=== PATIENT | male | born 1995 | race Two or more races ===

== ENCOUNTER 2022-07-31 17:55 | Emergency (ER) | payer OTHER ==
[~2022-07-31] VITALS: Ht 180.3 cm; Wt 102.6 kg
[2022-07-31 19:09] VITALS: BP 143/92
[2022-07-31] MEDS ORDERED: LIDOCAINE 1% HCL (LOCAL ANESTH.) INJ 20ML MDV IJ ONE (19:45)
[2022-07-31] MEDS ORDERED: CLIN-203 PO (20:13)
== END 2022-07-31 20:26 | disposition home or self-care (01) ==
LOC: ER 17:55
DX: L02.214 Cutaneous abscess of groin (principal)
CPT/HCPCS: 10060; 99283; J2001

== ENCOUNTER 2022-11-30 04:14 | Emergency (ER) | payer BC, OTHER ==
[~2022-11-30] VITALS: Ht 180.3 cm; Wt 105.0 kg
[~2022-11-30 04:14] MED LIST: CLIN-203 PO
[2022-11-30 06:52] VITALS: BP 134/84
== END 2022-11-30 08:01 | disposition home or self-care (01) ==
LOC: EDBD 04:14 → ER 04:14
DX: S01.81XA Laceration without foreign body of other part of head, initial encounter (principal); W22.8XXA Striking against or struck by other objects, initial encounter; Y93.89 Activity, other specified; Y92.89 Other specified places as the place of occurrence of the external cause; Y99.8 Other external cause status
CPT/HCPCS: 12002; 12013

== ENCOUNTER 2023-03-31 00:58 | Inpatient (IN) | payer BC ==
[~2023-03-31] VITALS: Ht 180.3 cm; Wt 107.0 kg
[2023-03-31] MEDS ORDERED: HYDROcodone-ACET 10/325MG TAB PO ONE (01:30)
[2023-03-31 02:35] LABS: Basophils # (auto) 0.2 10 ^3/uL (0-0.2); Basophils % (auto) 0.9 % (0.0-2.0); Eosinophils # (auto) 0.3 10 ^3/uL (0-0.8); Eosinophils % (auto) 1.5 % (0.0-7.0); Hemoglobin 14.3 g/dL (13.5-17.5); Lymphocytes # (auto) 2.4 10 ^3/uL (0.4-5.4); Lymphocytes % (auto) 12.4 % (10.0-50.0); Mean Corpuscular Hemoglobin 28.3 pg (28.0-32.0); Mean Corpuscular Hgb Conc. 33.9 g/dL (32.0-36.0); Mean Corpuscular Volume 83.4 fL (80.0-100.0); Monocytes # (auto) 1.2 10 ^3/uL (0-1.3); Monocytes % (auto) 6.4 % (0.0-12.0); Neutrophils # (auto) 14.9 10 ^3/uL (1.6-8.6); Neutrophils % (auto) 78.8 % (37.0-80.0); Nucleated Red Blood Cells % 0.3 %; Red Blood Cells 5.03 10^6/uL (4.5-5.90); Red Cell Distribution Width 13.7 % (11.8-14.3); White Blood Cell 18.9 10^3/uL (4.4-10.8)
[2023-03-31 03:36] LABS: Albumin 3.4 g/dL (3.4-5.0); Calcium 8.7 mg/dL (8.5-10.1); Potassium 4.2 mmol/L (3.5-5.1)
[2023-03-31 03:41] LABS: BUN/Creatinine Ratio 12.8 (10.0-20.0); Bilirubin, Total 0.3 mg/dL (0.2-1.0)
[2023-03-31 04:44] LABS: Urine Bacteria NONE SEEN /hpf (None Seen); Urine Blood Negative /uL (Negative); Urine Mucus FEW (None Seen); Urine Specific Gravity 1.025 (1.001-1.035); Urine WBC 6 /hpf (0 - 3)
[2023-03-31] MEDS ORDERED: PIPERACILLIN-TAZOB 3.375GM 100 ML IV ONE (07:00)
[2023-03-31] MEDS ORDERED: IOHEXOL 300 MG/ML 100ML BOTTLE IJ ONE (07:28)
[2023-03-31] MEDS ORDERED: MORPHINE SULFATE INJ 2 MG/ml SYRG IV ONE (08:30)
[2023-03-31] MEDS ORDERED: ONDANSETRON HCL 4 MG/2 ML VIAL IV PRN (09:00)
[2023-03-31] MEDS ORDERED: ACETAMINOPHEN 325 MG TAB PO PRN (09:00)
[2023-03-31 09:29] LABS: Cholesterol 116 mg/dL (< 200)
[2023-03-31 09:32] LABS: HDL Cholesterol 28 mg/dL (40-59); LDL Cholesterol 82 mg/dL (< 100); Triglycerides 98 mg/dL (< 150)
[2023-03-31] MEDS ORDERED: VANCOMYCIN PER PHARMACY 0 MG IV SCH (10:15)
[2023-03-31] MEDS ORDERED: SODIUM CHLORIDE 0.9% 2,000 ML IV ONE (10:15)
[2023-03-31] MEDS ORDERED: PANTOPRAZOLE 40 MG/10 ML VIAL INJ IV ONE (10:15)
[2023-03-31] MEDS ORDERED: RIFA300C58 PO (10:20)
[2023-03-31] MEDS ORDERED: ISON300T68 PO (10:20)
[2023-03-31] MEDS ORDERED: VANCOMYCIN 1GM/250ML 250 ML IV ONE (10:30)
[2023-03-31] MEDS: metroNIDAZOLE 500MG/100ML 100 ML IV SCH ×2 (10:56→14:00)
[2023-03-31] MEDS: CEFEPIME 1GM/ 50ML 50 ML IV SCH ×2 (10:57→14:00)
[2023-03-31] MEDS: MORPHINE SULFATE INJ 2 MG/ml SYRG IV PRN ×2 (12:20→17:13)
[2023-03-31] MEDS: HYDROcodone-ACET 5/325MG TAB PO PRN ×2 (13:11→23:30)
[2023-03-31] MEDS ORDERED: LIDOCAINE 1% HCL (LOCAL ANESTH.) INJ 20ML MDV ID ONE (13:15)
[2023-03-31] MEDS ORDERED: HYDROmorphone HCL 2 MG/ML VL/or syr IV ONE (13:30)
[2023-03-31] MEDS: SODIUM CHLORIDE 0.9% 1,000 ML IV SCH ×2 (14:19→18:17)
[2023-03-31] MEDS ORDERED: VANCOMYCIN 1GM/250ML 250 ML IV SCH ×2 (16:00→17:00)
[2023-03-31 21:51] VITALS: BP 99/58
[2023-03-31] MEDS ORDERED: CLIN-203 PO (22:26)
[2023-03-31] MEDS ORDERED: PERCOT PO (22:26)
[2023-04-01] MEDS ORDERED: PANTOPRAZOLE 40 MG/10 ML VIAL INJ IV SCH (10:00)
== END 2023-03-31 23:34 | disposition left against medical advice (07) | DRG 872 ==
LOC: ER 00:58 → TELE 08:59 → TELE-WESTW 21:29 → TELE 23:16
PROVIDERS: ADMIT Registered Nurse; ATTEND Nurse Practitioner Acute Care
DX: A41.9 Sepsis, unspecified organism (principal); N49.2 Inflammatory disorders of scrotum; E66.9 Obesity, unspecified; Z53.29 Procedure and treatment not carried out because of patient's decision for other reasons; K52.9 Noninfective gastroenteritis and colitis, unspecified; Z86.14 Personal history of Methicillin resistant Staphylococcus aureus infection; Z72.0 Tobacco use; Z71.6 Tobacco abuse counseling; Z68.32 Body mass index [BMI] 32.0-32.9, adult
CPT/HCPCS: 36415; 74177; 76870; 80053; 80061; 81001; 83036; 83605; 85025; 87040; 87205; 96365; 96366; 96375; C9113; G0378; J2001; J2405; J2543; J3490

== ENCOUNTER 2023-07-21 08:25 | Emergency (ER) | payer BC ==
[~2023-07-21] VITALS: Ht 180.3 cm; Wt 111.8 kg
[~2023-07-21 08:25] MED LIST changes: +ISON300T68 PO; +PERCOT PO; +RIFA300C58 PO
[2023-07-21 09:06] VITALS: BP 119/83; PULSE 98; RESP 18; TEMP 98; O2SAT 98
[2023-07-21] MEDS ORDERED: KETOROLAC TROMETH 30 MG/ML 1ML VIAL IM ONE (10:00)
[2023-07-21] MEDS ORDERED: ACETAMINOPHEN 500 MG TAB PO ONE (10:00)
[2023-07-21] MEDS ORDERED: AUG875T PO (11:46)
[2023-07-21] MEDS ORDERED: CEFTRIAXONE SODIUM 2 GM in D5W 5% 100 ML IV ONE (12:00)
== END 2023-07-21 14:37 | disposition home or self-care (01) ==
LOC: ER 08:25
DX: L08.82 Omphalitis not of newborn (principal); R10.84 Generalized abdominal pain
CPT/HCPCS: 74176; 96365; 96372; 99285; J0696; J1885; J7060